=== PATIENT | female | born 1955 | race Caucasian/White ===

== ENCOUNTER → 2017-08-05 13:27 | Outpatient (CLI) | payer BC, SELFPAY ==
--- NOTE | 2017-08-05 13:31 | HPBI_ITS ---
MAMMOGRAPHY - BILATERAL SCREENING 3-D BRAYDEN SYNTHESIS REASON FOR EXAM: Female, 62 years old. Bilateral Screening 3-D tomosynthesis PERTINENT HISTORY: Asymptomatic. History of invasive ductal carcinoma age 56 with left lumpectomy and radiation therapy. Left nipple surgical removal and replacement during lumpectomy surgery-indentation upper-inner right breast from pocket created. Several breast fatty tumors removed years ago. TECHNIQUE: 2-D mammograms and 3-D Brayden synthesis of the breast (s) were performed. CAD was performed. COMPARISON: 02/19/2016 through 11/11/2013 mammograms. FINDINGS: The breast composition is heterogeneously dense that can obscure small breast masses. Scattered benign calcifications are seen. No dense spiculated masses, abnormal microcalcification cluster, dominant mass, architectural distortion or adenopathy is identified. There is no skin thickening or nipple retraction. Postsurgical changes noted left breast upper outer quadrant and axilla with numerous surgical clips. There has been no significant change since the prior study. HPBI/SCREENING MAMM (CAD), BILAT IMPRESSION: No mammographic signs of malignancy. Routine yearly mammograms recommended. ASSESSMENT CATEGORY: BIRADS Category 2: Benign. A letter regarding these results will be sent to the patient by the facility within 30 days. FOLLOW UP RECOMMENDATION: Yearly follow up mammogram recommended. (A) Approximately 10% of breast cancers are not detected by mammography. A normal mammogram should not delay biopsy of a clinically suspicious abnormality. Electronically Signed: Oscar Harp, at 18:32 EDT Tel , Service support ,
== END ==
PROVIDERS: Family Provider Nurse Practitioner; PCP Nurse Practitioner; Visit Provider Nurse Practitioner
DX: Z12.31 Encounter for screening mammogram for malignant neoplasm of breast (principal)
CPT/HCPCS: 77063; 77067

== ENCOUNTER → 2018-04-28 13:17 | Outpatient (CLI) | payer BC, SELFPAY ==
[2018-04-28 14:50] LABS: Creatinine, Serum 0.79 mg/dL (0.55-1.02); EST Glomerular Filtration Rate 78 mL/min (>60); Est Glom Filt Rate - Afr Amer 94 mL/min (>60)
--- OUTSIDE RECORDS SUMMARY | 2018-06-14 17:25 | XMS RPT_ITS ---
:1955 Author Organization OHIP Care Team Providers Name Role Phone JUSTINA NUÑEZ (JEWEL INSPECTOR) Attending Unavailable LINDSAY GUERRERO (SPENT GRAIN DRYER) Referring Unavailable ABRAHAM CARL Attending Unavailable SHIRA COLIN Attending Unavailable SHIRA COLIN Attending Unavailable Shira Colin Attending Unavailable PROVIDER, UNKNOWN Referring Unavailable No, PCP Primary Care Unavailable Lindsay Guerrero Attending Unavailable Lindsay Guerrero Referring Unavailable Lindsay Guerrero Consulting Unavailable KENISHA ARMENTA Attending Unavailable KENISHA ARMENTA Referring Unavailable Lindsay Guerrero Primary Care Unavailable Lindsay Guerrero Attending Unavailable Lindsay Guerrero Referring Unavailable Lindsay Guerrero Primary Care Unavailable Purpose Purpose PROBLEMS PROBLEMS DATE TYPE CONDITION / CODE ATTENDING STATUS SOURCE 04/29/2018 Admitting Unspecified abnormal Colin, Active [facility] Diagnosis involuntary Shira System movements / Repository R25.9(ICD-10) 04/29/2018 Admitting Personal history of Colin, Active [facility] Diagnosis malignant neoplasm Shira System of breast / Repository Z85.3(ICD-10) 04/28/2018 Unknown Z13.89 - Encounter KENISHA ARMENTA Active [place] for screening for Community other disorder / Hospital Z13.89(ICD-10) Repository 03/11/2018 Active Brow ptosis, COLIN, Active [place] bilateral / [facility] Main H57.813(ICD-10) [place] Repository 03/11/2018 Active Dermatochalasis of COLIN, Active [place] right upper eyelid / [facility] Main H02.831(ICD-10) [place] Repository 03/11/2018 Active Dermatochalasis of COLIN, Active [place] left upper eyelid / [facility] Main H02.834(ICD-10) [place] Repository 03/11/2018 Active Dermatochalasis of COLIN, Active [place] right lower eyelid / [facility] Main H02.832(ICD-10) [place] Repository 03/11/2018 Active Dermatochalasis of COLIN, Active [place] left lower eyelid / [facility] Main H02.835(ICD-10) [place] Repository 03/11/2018 Active Unknown / TRISTAN, Active [place] UNK(Unknown) ABRAHAM SIERRA [facility] Repository PROCEDURES PROCEDURES No Procedure Records FoundVITAL SIGNS VITAL SIGNS No Vital Signs Records FoundRESULTS RESULTS PROGRESS Observed: 05/07/2018 Status: COMPLETED Source: [place] 1:00 PM [facility] REPOSITORY HNO ID: [id number] Author: Shira Colin Service: (none) Author Type: Physician Type: Progress Notes Filed: 05/07/2018 1:31 PM Note Text: neurologist MRI brain-here for results. recc approval for botulinum toxin diagnosis: blepharospasm 100 units A/P 1. Blepharospasm both eyes Feels extra bone/lumps around eyes and feels she can't keep her eyelids open because muscle hurts to keep it open Blink seemed to help Patient feels her eyes just want to close Patient feels eyes are tried at night Exam: +blepharospasm both eyes/frequent blinking 2-3+ spasm Has some component of mouth movement Discussed benign essential blepharospasm and Meige syndrome Discussed can see a neurologist for other treatments as well --> patient has not seen Check MRI brain w/wo contrast 04/29/18: IMPRESSION:??? 1. Nonspecific prominence of ventricles and sulci for age. ? 2. Nonspecific white matter changes most likely related to chronic ? ischemia and/or small vessel disease although demyelinative lesions ? are not excluded in a patient of this age. Other less likely differential considerations include infectious/inflammatory etiologies or changes related to vascular headaches. Correlate with clinical parameters. ? 3. No evidence of other acute or significant intracranial abnormality. ? Discussed possible botulinum toxin-->discussed series of injections every 3-4 mo Approval for botulinum toxin diagnosis blepharospasm 100 units: Contracted Insurance: Patient's Blue Card PPO insurance is primary and Financial Clearance is not necessary for [facility]. Please schedule the requested appointment. Patient would like to proceed with Botox injections Risks, benefits, alternatives discussed and patient wishes to proceed. Consent obtained. Additional site verification of Botox injection completed verbally with patient just prior to injection. 4u/0.1 0.9 cc = 36 units 2. Heavy upper eyelids Referred by Dr. Carl Exam: Prominent brow bones, low brows but no significant dermatochalasis Could use botox for browlift Visual field : 14,15 but above 30 3. H/o breast cancer s/p treatment The documentation for this note was completed by Marivel CASTANEDA acting as a scribe for Shira Colin MD. The documentation recorded by the scribe accurately reflects the service I personally performed and the decisions made by me. I have confirmed and edited as necessary the relevant ophthalmic history, ROS, and the neuro exam findings as obtained by others. I have seen and examined Sylvia Matute. I have discussed the case and the management of this patient's care with the Resident/Fellow, if applicable. I also have reviewed and agree with the assessment and plan as stated above and agree with all of its relevant components. Shira Colin MD MRI BRAIN W/ + W/O Observed: 04/29/2018 Status: F Source: [facility] 11:22 AM SYSTEM REPOSITORY Patient Name: SYLVIA MATUTE MRI Exam Date/Time 04/29/2018 11:04:08 EST Exam MRI Brain w/ + w/o Contrast Ordering Physician UNASSIGNED, UNASSIGNED Accession Number [id number] CPT4 Codes 66290 () Reason For Exam abnormal involuntary movements Report CLINICAL INFORMATION: Abnormal involuntary movements. Twitching of eyes and light sensitivity. History of breast cancer. MRI brain without and with gadolinium: Contrast: MultiHance, 14 mL. Sagittal T1, coronal T1 and turbo spin-echo T2 and axial T1, turbo spin-echo T2, FLAIR and diffusion weighted images are obtained prior to gadolinium administration. Axial, coronal and sagittal T1-weighted images are obtained following gadolinium administration. The ventricles and sulci are prominent for age. No intra- axial mass lesion or mass-effect is seen. There are scattered nonenhancing foci of abnormal increased signal intensity in the subcortical and deep white matter which are nonspecific and most likely related to chronic ischemia and/or small vessel disease, but demyelinative foci are not excluded in a patient of this age. In addition, these could be seen with infectious/inflammatory etiologies or related to vascular headaches. No other focal areas of abnormal intra-axial signal intensity are identified. There is no abnormality of the cerebellum, midbrain, namrata or medulla. The corpus callosum, optic chiasm and pituitary are unremarkable in appearance. There is no evidence of acute ischemic disease. There are no areas of abnormal contrast enhancement or other enhancing lesions. IMPRESSION: 1. Nonspecific prominence of ventricles and sulci for age. 2. Nonspecific white matter changes most likely related to chronic ischemia and/or small vessel disease although demyelinative lesions are not excluded in a patient of this age. Other less likely differential considerations include infectious/inflammatory etiologies or changes related to vascular headaches. Correlate with clinical parameters. 3. No evidence of other acute or significant intracranial abnormality. Report Dictated on Workstation: [id number] Final Dictated: 04/29/2018 11:22 am Dictating Physician: MD BALDWIN HARLAN Signed Date and Time: 04/29/2018 11:29 am Signed by: MD BALDWIN HARLAN Transcribed Date and Time: 04/29/2018 11:22 MR-MRI BRAIN W/ + W/O Observed: 04/29/2018 Status: F Source: [place] CONTRAST IMPORT 12:00 AM [facility] REPOSITORY Images were obtained outside of [facility] [id number] SERUM CREATININE AND Collected: 04/28/2018 Status: F Source: [place] GFR 1:36 PM [facility] REPOSITORY TYPE CODE TESTS RESULT OUT OF RANGE REFERENCE UNITS LAB L501.1100 0.55-1.02 mg/dL Normal 0.79 CREAT,SERUM Result Comment: The validity of the calculated GFR AND GFRAA in patients over 70 years has not been determined. Clinical correlation is essential. LAB L501.1110 >60 mL/min Normal EST GFR 78 Result Comment: Non- GFR Calc LAB L501.1115 >60 mL/min Normal EST GFR - AA 94 Result Comment: GFR Calc Performed By: #### L501.1105 #### [facility] [address] [place], [address] PROGRESS Observed: 04/06/2018 Status: COMPLETED Source: [place] 8:01 AM [facility] REPOSITORY HNO ID: [id number] Author: Shira Colin Service: (none) Author Type: Physician Type: Progress Notes Filed: 04/06/2018 9:07 AM Note Text: Referred by Dr. Carl for droopy Both upper lids--patient states has to ?Hold lids up when watching television sometimes. Gets intermittent eye pain--none right now. States thinks has inflammation in lids. Blink tears Both eyes Three times a day A/P 1. Blepharospasm both eyes Feels extra bone/lumps around eyes and feels she can't keep her eyelids open because muscle hurts to keep it open Blink seemed to help Patient feels her eyes just want to close Patient feels eyes are tried at night Exam: +blepharospasm both eyes/frequent blinking 2-3+ spasm Has some component of mouth movement Discussed benign essential blepharospasm and meige syndrome Discussed can see a neurologist for other treatments as well Check MRI brain r/o other causes Discussed possible botulinum toxin-->discussed series of injections every 3-4 mo [facility] approval for botulinum toxin diagnosis: blepharospasm 100 units Patient hesitant; likes to use natural medications 2. Heavy upper eyelids Referred by Dr. Carl Exam: Prominent brow bones, low brows but no significant dermatochalasis Could use botox for browlift Visual field : 14,15 but above 30 3. H/o breast cancer s/p treatment The documentation for this note was completed by Marivel Melo COA acting as a scribe for Shira Colin MD. The documentation recorded by the scribe accurately reflects the service I personally performed and the decisions made by me. I have confirmed and edited as necessary the relevant ophthalmic history, ROS, and the neuro exam findings as obtained by others. I have seen and examined Sylvia Matute. I have discussed the case and the management of this patient's care with the Resident/Fellow, if applicable. I also have reviewed and agree with the assessment and plan as stated above and agree with all of its relevant components. Shira Colin MD PROGRESS Observed: 03/11/2018 Status: COMPLETED Source: [place] 11:28 AM [facility] [place] REPOSITORY HNO ID: [id number] Author: Abraham Carl Service: (none) Author Type: Physician Type: Progress Notes Filed: 03/11/2018 11:36 AM Note Text: ASSESSMENT/PLAN: 1. 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 Colin for evaluation 2. Ptosis of both eyebrows - ICD9: 701.8, ICD10: H57.[address] Colin for evaluation 3. Photophobia of both eyes - ICD9: 368.13, ICD10: H53.143 No findings on exam to explain Try Blink Tears both eyes three times a day 4. Eye pain, bilateral - ICD9: 379.91, ICD10: H57.13 Achy pain brow area both eyes and intermittent brief sharp stabbing pains both eyes - no findings on exam to explain 5. Nuclear senile cataract of both eyes - ICD9: 366.16, ICD10: H25.13 Not visually significant both eyes Educated patient on condition; continue to monitor. Plan: Blink Tears both eyes three times a day Schedule appointment to see Dr. Colin within next 4 weeks Abraham Carl MD I have confirmed and edited as necessary the relevant ophthalmic history, ROS, and the neuro exam findings as obtained by others. I have seen and examined Sylvia Matute. I have discussed the case and the management of this patient's care with the Resident/Fellow, if applicable. I also have reviewed and agree with the assessment and plan as stated above and agree with all of its relevant components. SCREENING MAMM (CAD), Observed: 08/05/2017 Status: F Source: [place] 1:31 PM [facility] REPOSITORY [facility] Imaging Services [address] [place] [address] SCREENING MAMM (CAD), BILAT MR#: [id number] Acct: [id number] Name: SYLVIA MATUTE Rep #: [id number] : 1955 F 62 From: Oscar Harp MD PCP: Lindsay Guerrero NP Status: REG CLI Study: SCREENING MAMM (CAD), BILAT Date of Exam: 08/05/17 Exam# [id number] Ordering Dr: Lindsay Guerrero MAMMOGRAPHY - BILATERAL SCREENING 3-D JIMMY SYNTHESIS REASON FOR EXAM: Female, 62 years old. Bilateral Screening 3-D tomosynthesis PERTINENT HISTORY: Asymptomatic. History of invasive ductal carcinoma age 56 with left lumpectomy and radiation therapy. Left nipple surgical removal and replacement during lumpectomy surgery-indentation upper-inner right breast from pocket created. Several breast fatty tumors removed years ago. TECHNIQUE: 2-D mammograms and 3-D Jimmy synthesis of the breast (s) were performed. CAD was performed. COMPARISON: 02/19/2016 through 11/11/2013 mammograms. FINDINGS: The breast composition is heterogeneously dense that can obscure small breast masses. Scattered benign calcifications are seen. No dense spiculated masses, abnormal microcalcification cluster, dominant mass, architectural distortion or adenopathy is identified. There is no skin thickening or nipple retraction. Postsurgical changes noted left breast upper outer quadrant and axilla with numerous surgical clips. There has been no significant change since the prior study. HPBI/SCREENING MAMM (CAD), BILAT IMPRESSION: No mammographic signs of malignancy. Routine yearly mammograms recommended. ASSESSMENT CATEGORY: BIRADS Category 2: Benign. A letter regarding these results will be sent to the patient by the facility within 30 days. FOLLOW UP RECOMMENDATION: Yearly follow up mammogram recommended. (A) Approximately 10% of breast cancers are not detected by mammography. A normal mammogram should not delay biopsy of a clinically suspicious abnormality. Electronically Signed: Oscar Harp, at 18:32 EDT Tel , Service support , CC: Lindsay Guerrero NP Speech Lang Path: Signed PROGRESS Observed: 08/05/2017 Status: COMPLETED Source: [place] 11:40 AM [facility] REPOSITORY HNO ID: [id number] Author: Justina Nuñez APRN.BENIGNO Service: (none) Author Type: Nurse Practitioner Type: Progress Notes Filed: 08/06/2017 8:15 AM Note Text: Chief Complaint Patient presents with: New Patient HPI: Sylvia Matute is a 62 year old female who presents here today to establish care for breast cancer-Pt. moving to [place] from [facility]. We have no records to review. Pt. signed release today. HPI:This is all per patient due to the fact that I have no records to review. Pt. felt a lump in 2008. She had not had a mammogram for 18 months prior to feeling the lump. Subsequently had an US and biopsy which showed triple negative disease. Left breast lumpectomy October 2008. Pt. recalls receiving adriamycin/cytoxan/taxotere/neulasta then radiation ending in early 2009. 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 She lived in [place] at this time. She has been living in [facility]. but is moving to [place]. Last mammogram was 18 months ago-she is scheduled for one today at [facility]. No complaints. Appetite:too good Energy level:poor ever since chemo and radiation. Denies fevers or recent illness. Resp:denies cough or sob Cardiac:denies chest pain/palpitations GI:denies abd pain, n/v, moving bowels regularly :denies dysuria/hematuria Extrem:joint pain it's all over h/o OA per pt. Endo:+hot flashes some days are worse than others-but they are everyday and sometimes at night. Neuro:+neuropathy to feet/toes since chemo Skin:denies rashes Heme:denies bleeding The ROS is otherwise negative. Past medical history, appointments, medications, allergies reviewed. No changes. EXAM: BP 133/78 Pulse 85 Temp 36.4 ?C (97.5 ?F) Ht 159.4 cm (5' 2.75) Wt 67.6 kg (149 lb) BMI 26.6 kg/m2 APPEARANCE Well appearing, alert, in no acute distress, well-hydrated, well nourished. HEART RRR with normal S1 and S2, no murmurs LUNG clear to auscultation BREAST FEMALE R no mass/nodule, L surgical defect to L upper/inner/radiation changes LYMPH NODES No cervical lymphadenopathy, No supraclavicular lymphadenopathy and No axillary lymphadenopathy. ABDOMEN bowel sounds normoactive, no bruits, soft, non-tender, non-distended, without organomegaly or palpable masses EXTREMITIES No edema NEURO Awake, alert and oriented x 3, Normal gait and No involuntary motions. SKIN Skin color, texture, turgor normal, no suspicious rashes or lesions ASSESSMENT/PLAN: 1. Malignant neoplasm of upper-inner quadrant of left breast in female, estrogen receptor negative (HCC) - ICD9: 174.2, V86.1, ICD10: C50.212, Z17.1 S/p Left breast lumpectomy/chemo/XRT ending in early 2009. - No concerning findings on exam. - Will await records to update EPIC. - Pt. having mammogram this afternoon at [facility]. - Follow up in one year. - Pt. aware to call office with any questions/concerns. The patient indicates understanding of these issues and agrees with the plan. Justina Nuñez APRN.CNP CNOVSP Observed: 08/05/2017 Status: COMPLETED Source: [place] 11:30 AM [facility] REPOSITORY Visit (SP) Office (ADELITA) SYLVIA MATUTE ([id number]) 1955 F Date Time Provider Department 08/05/17 11:30 AM JUSTINA NUÑEZ) ADELITA During your visit today, we recorded the following information about you: Temperature Pulse Blood pressure Weight 97.5 degrees 85/minute 133/78 67.6 kg Height 1.594 m Gerri Berrios LPN, LPN 08/05/2017 12:01 PM Signed New patient, discuss yearly f/u breast cancer. DERICK Cruz APRN.ERIS PELAEZ 08/06/2017 8:15 AM Signed Chief Complaint Patient presents with: New Patient HPI: Sylvia Matute is a 62 year old female who presents here today to establish care for breast cancer-Pt. moving to [place] from [facility]. We have no records to review. Pt. signed release today. HPI:This is all per patient due to the fact that I have no records to review. Pt. felt a lump in 2008. She had not had a mammogram for 18 months prior to feeling the lump. Subsequently had an US and biopsy which showed triple negative disease. Left breast lumpectomy October 2008. Pt. recalls receiving adriamycin/cytoxan/taxotere/neulasta then radiation ending in early 2009. 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 She lived in [place] at this time. She has been living in [facility]. but is moving to [place]. Last mammogram was 18 months ago-she is scheduled for one today at [facility]. No complaints. Appetite:ANDquot;too goodANDquot; Energy level:poor ANDquot;ever since chemo and radiation.ANDquot; Denies fevers or recent illness. Resp:denies cough or sob Cardiac:denies chest pain/palpitations GI:denies abd pain, n/v, moving bowels regularly :denies dysuria/hematuria Extrem:joint pain ANDquot;it's all overANDquot; h/o OA per pt. Endo:+hot flashes ANDquot;some days are worse than others- but they are everyday and sometimes at night.ANDquot; Neuro:+neuropathy to feet/toes since chemo Skin:denies rashes Heme:denies bleeding The ROS is otherwise negative. Past medical history, appointments, medications, allergies reviewed. No changes. EXAM: BP 133/78 Pulse 85 Temp 36.4 ?C (97.5 ?F) Ht 159.4 cm (5' 2.75ANDquot;) Wt 67.6 kg (149 lb) BMI 26.6 kg/m2 APPEARANCE Well appearing, alert, in no acute distress, well- hydrated, well nourished. HEART RRR with normal S1 and S2, no murmurs LUNG clear to auscultation BREAST FEMALE R no mass/nodule, L surgical defect to L upper/inner/radiation changes LYMPH NODES No cervical lymphadenopathy, No supraclavicular lymphadenopathy and No axillary lymphadenopathy. ABDOMEN bowel sounds normoactive, no bruits, soft, non-tender, non-distended, without organomegaly or palpable masses EXTREMITIES No edema NEURO Awake, alert and oriented x 3, Normal gait and No involuntary motions. SKIN Skin color, texture, turgor normal, no suspicious rashes or lesions ASSESSMENT/PLAN: 1. Malignant neoplasm of upper-inner quadrant of left breast in female, estrogen receptor negative (HCC) - ICD9: 174.2, V86.1, ICD10: C50.212, Z17.1 S/p Left breast lumpectomy/chemo/XRT ending in early 2009. - No concerning findings on exam. - Will await records to update EPIC. - Pt. having mammogram this afternoon at [facility]. - Follow up in one year. - Pt. aware to call office with any questions/concerns. The patient indicates understanding of these issues and agrees with the plan. Justina Nuñez APRN.BENIGNO Referring Provider: LINDSAY GUERRERO [[id number]] Allergies As of Date: 08/05/2017 (No Known Allergies) Date Reviewed: 08/05/2017 Reviewed by: Justina (Benigno) JOSEPHINE Nuñez.JEWEL INSPECTOR - Fully Assessed Reason for Visit: New Patient [172] Primary Visit Diagnosis:Malignant neoplasm of upper-inner quadrant of left breast in female, estrogen receptor negative (HCC) [C50.212, Z17.1] Follow-up and Disposition History Recorded Problem List As Of Date: 08/05/2017 (None) Visit Notes: >> Gerri Berrios LPN ThuAug 05, 2017 11:27 AM Status: Signed New patient, discuss yearly f/u breast cancer. Gerri Berrios LPN Encounter Status:Closed by JUSTINA NUÑEZ CNP on 08/06/17 ALLERGIES ALLERGIES DATE TYPE / CODE NAME / CODE REACTION SEVERITY SOURCE Drug NO KNOWN [facility] Class/38110 ALLERGIES Main [place] 1003(SNOMED Repository CT) ENCOUNTERS ENCOUNTERS ADMIT/DISCHARGE ACCOUNT NUMBER ADMITTING ENCOUNTER LOCATION SOURCE CLASS 05/20/2018 [id number] Ambulatory Building:[facility] Repository 05/07/2018/05/10/20 [id number] Ambulatory [address] Repository 04/29/2018 [id number] Ambulatory [facility] Repository 04/28/2018 [id number] Ambulatory [facility] ding:LAB Repository 04/06/2018/04/06/20 [id number] Ambulatory [address] Repository 03/11/2018/03/12/20 [id number] Ambulatory [address] Repository 08/05/2017 [id number] Ambulatory [facility] ding:BI Repository 08/05/2017/08/07/19 [id number] Ambulatory [address] Repository FUNCTIONAL STATUS FUNCTIONAL STATUS No Functional Status Records FoundEQUIPMENT EQUIPMENT No Equipment Records FoundPAYERS PAYERS ENCOUNTER GUARANTOR PAYER SUBSCRIBER SOURCE 05/20/2018 Sylvia Reddy Primary Joel CasasB: OHIP Practices LongDOB: Insurance:[employer] [id number] Repository BC/BSPolicy Number: [address] [place] [id number] [place], [place] Date:[id number] [id number]: [phone]: [phone]) Name:[facility]LY [facility] [phone] () [phone] [place] [address] ID ()Tel: [phone]: [phone] 05/20/2018 Secondary Joel Plascencia: [place] Practices Insurance:[employer] [id number] Repository /BSPolicy Number: [address] [place] [address] [id number] [place], [place] Date:2016-05-18 703[address]Yks: [phone] [id number] [phone] () Name:[address], [place] [id number]: 04/29/2018 Sylvia CasasB: Primary Sylvia Plascencia: [facility] Vapotherm Insurance:[employer] Blue [id number] System [place] Cross Blue Repository [place], [place] ShieldPolic Number: [id number]: [phone] Effective Date: [phone] () 04/28/2018 SYLVIA Reddy Primary JOEL Barak DOMINGO [place] [id number] MUD [facility] [place], Number: [facility] [id number]: [id number] Repository Date:[id number] () [id number], [place] [address]DV: 04/28/2018 Secondary NOT GIVENUNK Jenna Insurance:SELF PAY [facility] Number: Effective Repository Date:2018-04-28 08/05/2017 SYLVIA Reddy Primary SYLVIA Reddy Jenna [id number] MUD Insurance:ANTHEMPolic LONGDOB: [facility], Number: [id number] [address]Anr: [id number] Repository Date:8027-63-43TJ [address] () [address]388[address]QU, [place] [address]EI: 08/05/2017 Secondary NOT GIVENUNK Jenna Insurance:SELF PAY [facility] Number: Effective Repository Date:2017-07-17 SOCIAL HISTORY SOCIAL HISTORY No Social History Records FoundFAMILY HISTORY FAMILY HISTORY No Family History Records FoundADVANCE DIRECTIVES ADVANCE DIRECTIVES No Advanced Directives Records FoundINFORMATION SOURCE INFORMATION SOURCE DATE CREATED AUTHOR AUTHOR'S ORGANIZATION 06/09/2018 [facility]
== END ==
PROVIDERS: Family Provider Nurse Practitioner; PCP Nurse Practitioner
DX: Z13.89 Encounter for screening for other disorder (principal)
CPT/HCPCS: 36415; 82565

== ENCOUNTER → 2020-01-19 09:04 | Outpatient (CLI) | payer BC, MEDICARE, SELFPAY ==
--- NOTE | 2020-01-19 09:16 | BI_ITS ---
MAMMOGRAPHY - BILATERAL DIAGNOSTIC REASON FOR EXAM: Female, 64 years old. Palpable lump at the lumpectomy site. PERTINENT HISTORY: Personal history of breast cancer. Prior left lumpectomy with chemotherapy. TECHNIQUE: Digital bilateral breast génesis (3D mammographic acquisition) in the CC and MLO projections. 2-D mediolateral oblique (MLO) and craniocaudad (CC) views of both breasts were obtained. CAD: Full Field Digital Mammography with Computer Added Detection was performed. COMPARISON: Comparison is made with prior abdomen examination dated 10/18/2019. FINDINGS: Breast Composition: The breasts are heterogeneously dense, which may obscure small masses. There are no dominant masses or suspicious calcifications. Stable deformity of the left breast and compared with prior lumpectomy. Tissue markers are seen in the deep medial portion of the left breast. Dense calcifications are seen in the medial aspect of the left breast. No other significant abnormalities are identified. There has been no significant change since the prior study. BI/DIAG MAMM W/CAD, BILAT IMPRESSION: Stable bilateral diagnostic mammogram. Correlation with ultrasound of the palpable lump in the left breast is recommended. ASSESSMENT CATEGORY: BIRADS Category 0: Incomplete. Need additional imaging evaluation. A letter regarding these results will be sent to the patient by the facility within 30 days. Approximately 10% of breast cancers are not detected by mammography. A normal mammogram should not delay biopsy of a clinically suspicious abnormality. Electronically Signed: Dwayne Calderon, at 11:15 EDT , Service support ,
--- NOTE | 2020-01-19 09:16 | US_ITS ---
STUDY: ULTRASOUND BREAST - LEFT REASON FOR EXAM: Female, 64 years old. Palpable lump left breast. TECHNIQUE: Axial and longitudinal images of the LEFT breast were performed with a high resolution ultrasound transducer. # OF IMAGES: 130 COMPARISON: Comparison is made with prior mammogram done today. FINDINGS: LEFT Breast: Entire breast was examined. 2 small benign-appearing lymph nodes are seen in the left axillary region. The larger nodule measures 1.1 cm x 0.8 cm x 0.4 cm. US/Breast Limited Unilateral IMPRESSION: 2 benign appearing lymph nodes are seen in the left axillary region. ASSESSMENT CATEGORY: BIRADS Category 2: Benign. A letter regarding these results will be sent to the patient by the facility within 30 days. Electronically Signed: Dwayne Calderon, at 13:29 EDT , Service support ,
== END ==
PROVIDERS: PCP Nurse Practitioner; Referring Provider Nurse Practitioner; Visit Provider Nurse Practitioner
DX: N63.20 Unspecified lump in the left breast, unspecified quadrant (principal); Z85.3 Personal history of malignant neoplasm of breast
CPT/HCPCS: 76642; 77062; 77066; G0279

== ENCOUNTER → 2020-01-31 15:29 | Outpatient (CLI) | payer BC, MEDICARE, SELFPAY ==
--- NOTE | 2020-01-31 15:30 | PET_ITS ---
EXAMINATION: FDG PET-CT INDICATIONS: A 64-year-old female with history of carcinoma of the breast presenting for restaging examination. COMPARISON EXAMINATION: None available INDEX LESION SIZE SUV INTERPRETATION Mediastinum, bilateral infrahilar regions 1.7 (max) Quantitative criteria for viable neoplasm are not fulfilled Right lower posterior lung, diffuse 1.2 Quantitative criteria for viable neoplasm are not fulfilled TECHNIQUE: Following the intravenous administration of 13.95 mCi of F-18 deoxyglucose via the right antecubital fossa, multiplanar image acquisitions of the neck, chest, abdomen and pelvis to level of mid thigh, obtained at one hour post radiopharmaceutical administration contemporaneously interpreted with the current CT of the neck, chest, abdomen and pelvis, to level of mid thigh, dated 01/31/2020 via coregistration reveals: BLOOD GLUCOSE LEVEL:?? 97 mg/dl?HEIGHT:?62 inches?WEIGHT: 157 lbs. FINDINGS: 1. Mild increased FDG concentration is observed in the subcarinal mediastinum, bilateral infrahilar regions generating a calculated maximal standard uptake value of 1.7. 2. Normal physiologic distribution of the radiopharmaceutical is apparent in the hepatic (3.3) and splenic parenchyma, right renal unit, bladder and visualized intestinal tract. The visualized portion of the cerebral cortex demonstrate symmetric and preserved glucose metabolism. Prominent uptake is defined in the anterior neck, laryngeal structures which appears associated with the cricopharyngeus musculature without evidence of soft tissue thickening most consistent with physiologic tracer uptake. Mild diffuse non-nodular increased fluorine labeled glucose metabolism is noted in the right mid-lower posterior lung rendering a calculated maximal standard uptake value of 1.2. Quantitative criteria for viable neoplasm are not fulfilled. Pertinent CT findings are as follows: CHEST: There are no parenchymal densities-nodules defined in the right and left hemithorax with discernible quantitatively significant increased FDG concentration. Surgical clip placement is defined in the left breast and axillary regions. Subcentimeter left and right axillary soft tissue reveals no evidence of quantitatively significant increased FDG uptake. There is atherosclerotic calcification defined in the thoracic aorta without evidence of dilatation-aneurysm formation. ABDOMEN AND PELVIS: There is atherosclerotic calcification defined in the abdominal aorta without evidence of dilatation-aneurysm formation. Pelvic arterial calcification is demonstrated. Colonic diverticulosis is encountered without evidence of diverticulitis. Right and left inguinal soft tissue densities with fatty hilus are ametabolic. The left kidney is metabolic, morphologically absent commensurate with history of known previous nephrectomy. SKELETAL: Degenerative changes are noted in the cervical, thoracic and lumbar spine. There is diffuse demineralization identified throughout the axial skeletal structures. PET/PET/CT Tumor Base -Thigh Subs IMPRESSION: 1. NEGATIVE EXAMINATION. There is no definitive quantitative scintigraphic evidence of recurrent-metastatic/viable neoplasm. 2. Enhanced tracer uptake noted in the subcarinal mediastinum and bilateral infrahilar regions do not fulfill quantitative criteria for viable neoplasm. (Jose et al, Journal of Clinical Oncology 16:2142, 1998 Delmis et al, Journal of Nuclear Medicine 43:155P, 2002). 3. Diffuse non-nodular increased tracer uptake visualized in the right lower posterior lung does not fulfill quantitative criteria for viable neoplasm. (Irene et al, Annals of Internal Medicine, 138:724, 2003). Electronic Signature Rey Arnold D.O. Accurate Quantification of SUVs for this report are calculated using the exclusive [employer]. Electronically Signed: Rey Arnold DO at 18:58 EDT Tel , Service support ,
== END ==
PROVIDERS: PCP Nurse Practitioner; Referring Provider Nurse Practitioner; Visit Provider Nurse Practitioner
DX: D48.62 Neoplasm of uncertain behavior of left breast (principal)
CPT/HCPCS: 78815; A9552

== ENCOUNTER → 2020-03-01 14:20 | Outpatient (CLI) | payer BC, MEDICARE, SELFPAY ==
--- NOTE | 2020-03-01 14:45 | BD_ITS ---
STUDY: DUAL ENERGY X-RAY ABSORPTIOMETRY / DXA REASON FOR EXAM: Female, 65 years old. Age of gurwinder 53. Pat is 156.7# and 62.5 and quot; a loss of .5 and quot; per pat. Past hx of smoking off and on. Has been on steroids a couple of times. Takes Calcium. Exercises a little to moderately. TECHNIQUE: Bone Mineral Density (BMD) measurements of lumbar spine and bilateral hips were obtained. COMPARISON: None. FINDINGS: Lumbar Spine (L1-L4): g/cm2 (1.068) / T-score (-0.9) / Z-score (0.8) Findings are suggestive of normal bone density with a low fracture risk. Left Femur Total: g/cm2 (0.853) / T-score (-1.2) / Z-score (0.0) Left Femoral Neck: g/cm2 (0.852) / T-score (-1.3) / Z-score (0.2) Right Femur Total: g/cm2 (0.905) / T-score (-0.8) / Z-score (0.4) Right Femoral Neck: g/cm2 (0.889) / T-score (-1.1) / Z-score (0.4) BD/Dexa Bone Density Study IMPRESSION: The patient is considered osteopenic as outlined below according to World Guru Organization (WHO) criteria with a low fracture risk. Reference Information: The T-score is the number of standard deviations above or below the standard which is normal for young adults at their peak bone mineral density. The World Health Organization (WHO) interprets the T-scores as follows: Above -1 Normal bone density Between -1 and -2.5 Osteopenia Equal to / or below -2.5 Osteoporosis As a practical clinical guideline, osteopenia may be graded as follows: Mild -1 through -1.5 Moderate -1.6 through -2.0 Severe -2.1 through -2.4 The Z-score is the number of standard deviations above or below age-matched controls. A Z-score of less than -1.5 would be considered abnormal. References: 1. NIH Osteoporosis and Related Bone Diseases www osteo.org 2. International Society for Clinical Densitometry www iscd.org 3. National Osteoporosis Foundation www nof.org Electronically Signed: Dwayne Calderon, at 11:06 EDT , Service support ,
== END ==
LOC: OPBD 09-02 00:18
PROVIDERS: PCP Nurse Practitioner; Referring Provider Nurse Practitioner; Visit Provider Nurse Practitioner
DX: Z78.0 Asymptomatic menopausal state (principal)
CPT/HCPCS: 77080

== ENCOUNTER 2021-08-03 19:33 | Emergency (ER) | payer BC, MEDICARE, SELFPAY ==
[2021-08-03 19:34] VITALS: BP 196/95; PULSE 89; RESP 16; TEMP 36.8; O2SAT 97; BMI 27.3
[2021-08-03 19:37] VITALS: BP 196/95; PULSE 89; RESP 16; TEMP 36.8; O2SAT 97
--- NOTE | 2021-08-03 20:53 | EDS_ITS ---
HPI History of Present Illness Chief Complaint: Dizziness Informant: patient and spouse/S.O. Narrative Narrative: 4-day history of room spinning especially with laying down or sitting up. States done in [place] in her camper when she woke up with symptoms. Would have intermittent symptoms last time today. Nausea without vomiting. Mild frontal headache. History of breast cancer years ago with treatment. No fevers. No visual changes. No weakness. No speech changes. Patient does not take any daily medications. Denies allergies. States has 1 kidney. Prior similar symptoms: No PFSH PFSH Medical History Breast cancer, left breast Neurologic disorder of eye movements Home Medications metoclopramide HCl [Reglan] 5 mg PO Q6H PRN #20 tab 08/03/21 [Rx Last Taken Unknown] Allergy/AdvReac Type Severity Reaction Status Date / Time No Known Allergies Allergy Verified 08/03/21 19:36 Surgical History H/O left nephrectomy Social History Smoking Status: Never smoker ROS ROS ED Constitutional Constitutional ED: Denies chills, fever(s) or sweats Eyes Eyes: Denies change in vision ENT ENT ED: Denies dysphagia or sore throat Cardiovascular Cardiovascular: Denies chest pain, leg edema, palpitations or racing heartbeat Respiratory/Chest Respiratory/Chest: Denies cough, dyspnea or dyspnea on exertion Gastrointestinal Gastrointestinal: Denies abdominal pain, diarrhea, nausea or vomiting Genitourinary Genitourinary ED: Denies dysuria, hematuria or urinary frequency Musculoskeletal Musculoskeletal: Denies back pain, extremity pain or neck pain Integumentary Denies rash or wounds Neurologic Neurologic: Reports headache(s) and other Details: Dizziness ; Denies paresthesias or weakness EXAM Physical Exam Const Vital Signs: 08/03/21 19:34 08/03/21 19:37 08/03/21 20:45 Temperature 98.3 F 98.3 F Temperature Source Temporal Temporal Pulse Rate 89 89 Respiratory Rate 16 16 Respiratory Pattern Normal Blood Pressure 196/95 H 196/95 H Blood Pressure Mean 128 128 Pulse Ox 97 97 Oxygen Delivery Method Room Air Room Air 08/03/21 22:57 Temperature Temperature Source Pulse Rate 81 Respiratory Rate 16 Respiratory Pattern Blood Pressure 168/92 H Blood Pressure Mean Pulse Ox 98 Oxygen Delivery Method Positive well nourished and well developed General Appearance ED: well developed and NAD HEENT Reports TM's clear and moist mucous membranes normocephalic and atraumatic Tympanic Membrane ED: Yes TM's clear Eyes PERRL, EOMs intact bilaterally and conjunctivae normal General Eye ED: Yes normal appearance of both eyes Neck no lymphadenopathy and supple General: Negative for tenderness Chest Wall Chest: Negative for tenderness Resp normal respiratory effort and normal air movement Effort and Inspection: symmetric chest movement; Negative for respiratory distress Cardio regular rate, regular rhythm and no murmurs Peripheral Pulses: pulses 2+ throughout GI normal to inspection, nondistended, normoactive bowel sounds and non-tender Palpation: Negative for guarding or rebound tenderness present Back/Spine no CVA tenderness and no thoracic nor lumbar tenderness Extremity normal to inspection General Extremety ED: Negative for edema or tenderness General Extremity: Negative for edema Neuro oriented x3, CN's II-XII intact bilaterally and no sensory deficits noted Neuro Narrative: NIH equals 0. Positive Ghislaine-Hallpike to the right. Sensorium / Orientation: awake and alert Skin no rashes or lesions noted and no wounds MDM MDM MDM Narrative Medical decision making narrative: Patient with positive Ghislaine-Hallpike on the right side. With patient's age and history of breast cancer, CT scan brain was obtained returning no acute process. NIH was 0. Basic labs were normal. She is treated with IV Reglan initially on reevaluation she states moderate improvement of symptoms. I discussed and showed the patient Mele maneuver to help with symptoms. She is given prescription of Reglan to use as needed discussed close follow-up with her PCP. Return precautions discussed. All questions were answered. Lab Data Attestation: I reviewed the patient's lab results. Labs: Laboratory Results - last 24 hr 08/03/21 08/03/21 20:50 20:50 WBC 7.6 RBC 5.23 Hgb 15.0 Hct 44.8 MCV 85.7 MCH 28.7 MCHC 33.5 RDW Std Deviation 39.5 RDW Coeff of Ricardo 12.7 Plt Count 262 MPV 10.6 Immature Gran % (Auto) 0.100 Neut % (Auto) 56.9 Lymph % (Auto) 32.8 Cloud % (Auto) 8.5 Eos % (Auto) 1.3 Baso % (Auto) 0.4 Absolute Neuts (auto) 4.3 Absolute Lymphs (auto) 2.48 Nucleated RBC % 0 Sodium 140 Potassium 3.9 Chloride 108 H Carbon Dioxide 26.0 Anion Gap 6 BUN 10 Creatinine 0.76 Estim Creat Clear Calc 45.16 Est GFR (MDRD) Af Amer 97 Est GFR (MDRD) Non-Af 80 BUN/Creatinine Ratio 13.1 Glucose 96 Calcium 9.9 Radiography Diagnostic Testing: Clinical Impression(s) from Imaging Studies Brain CT 08/03/21 21:06 IMPRESSION: No acute intracranial hemorrhage or mass effect. Electronically Signed: Hany Ambrosio MD (Brooks) at 22:01 EDT Reading Location ID and State: [facility] / [place] , Service support , Discharge Plan Triage Chief Complaint: Dizziness ED Provider: Moe Ruvalcaba Dx/Rx/DC Orders Clinical Impression: Vertigo Instructions: ED BPV Vertigo Prescriptions: New metoclopramide HCl [Reglan] 5 mg tablet 5 mg PO Q6H PRN (Reason: nausea and vomiting or vertigo) Qty: 20 RF: 0 Primary Care Provider: Lindsay Ramon NP Referrals: Lindsay Ramon SLICER MACHINE OPERATOR, SLICER MACHINE OPERATOR-C [Primary Care Provider] - 3-5 Days if not improving Activity Restrictions/Additional Instructions: CT scan negative. Performed Mele maneuver as shown as needed. Use Reglan as needed. Follow-up with your doctor. Return if any worsening symptoms. Disposition Disposition: Home, Self Care Discharge Date/Time: 08/03/21 22:59
[2021-08-03 21:02] LABS: Absolute Lymphocyte Count 2.48 X10^3/uL (0.83-4.51); Absolute Neutrophil Count 4.3 X10^3/uL (2.0-7.7); Basophil# 0.03 X10^3/uL; Basophil% 0.4 % (0-1); Eosinophils% 1.3 % (0-5); Hematocrit 44.8 % (37-47); Lymphocyte # 2.48 X10^3/ul (0.83-4.51); Lymphocyte % 32.8 % (19-41); Mean Corp Hgb Conc 33.5 g/dL (32-36); Mean Corpuscular Hgb 28.7 pg (27.0-32.0); Mean Corpuscular Volume 85.7 fL (81-99); Mean Platelet Vol. 10.6 fl (6.2-12.0); Monocyte# 0.64 X10^3/uL; Monocyte% 8.5 % (0-10); NRBC Flagged by Analyzer 0 % (0-5); Neutrophil # 4.31 X10^3/uL (2.7-7.7); Neutrophil % 56.9 % (47-70); Platelet Count 262 K/mm3 (150-450); RBC Distribution Width CV 12.7 % (11.6-14.6); RBC Distribution Width SD 39.5 fl (35.1-43.9); Red Blood Count 5.23 M/mm3 (4.2-5.4); White Blood Count 7.6 K/mm3 (4.4-11.0)
--- NOTE | 2021-08-03 21:06 | CT_ITS ---
STUDY: CT BRAIN WITHOUT CONTRAST REASON FOR EXAM: Female, 66 years old. vertigo RADIATION DOSAGE (If Supplied By Facility): CTDIvol = ( 44.99 ) mGy, DLP = ( 796.11 ) mGycm TECHNIQUE: Transaxial CT imaging of the brain was performed without administration of intravenous contrast material. Individualized dose optimization techniques were used for this CT. COMPARISON: No relevant priors. FINDINGS: Normal soft tissue structures. Normal calvarium. There is mild cerebral atrophy with widening of the extra-axial spaces and ventricular dilatation. There are areas of decreased attenuation within the white matter tracts of the supratentorial brain, consistent with microvascular disease changes. Normal basal ganglia and thalami. Normal brainstem. Normal cerebellum. There is no intracranial hemorrhage. There are no findings of an acute ischemic infarction. Normal visualized paranasal sinuses. CT/Brain/Head without Contrast IMPRESSION: No acute intracranial hemorrhage or mass effect. Electronically Signed: Hany Ambrosio MD (Brooks) at 22:01 EDT ,
[2021-08-03] MEDS: Metoclopramide 10 MG/2 ML Vial 5 MG IV (21:17)
[2021-08-03 22:06] LABS: Anion Gap 6 (5-15); BUN 10 mg/dL (7-18); BUN/Creat Ratio 13.1 RATIO (10-20); Calcium,Total 9.9 mg/dL (8.5-10.1); Chloride 108 mmol/L (98-107); Creatinine, Serum 0.76 mg/dL (0.55-1.02); EST Glomerular Filtration Rate 80 mL/min (>60); Est Glom Filt Rate - Afr Amer 97 mL/min (>60); Estimated Creatinine Clearance 45.16 ml/min; Glucose 96 mg/dL (74-106); Potassium 3.9 mmol/L (3.5-5.1); Sodium Level 140 mmol/L (136-145)
[2021-08-03 22:57] VITALS: BP 168/92; PULSE 81; RESP 16; O2SAT 98
== END 2021-08-03 22:59 | disposition home or self-care (01) ==
PROVIDERS: Emergency Provider Emergency Medicine; PCP Nurse Practitioner; Visit Provider Emergency Medicine
DX: R42 Dizziness and giddiness (principal)
CPT/HCPCS: 70450; 80048; 85025; 96374; 99285; A4216

== ENCOUNTER → 2021-11-25 | Outpatient (CLI) | payer BC, MEDICARE, SELFPAY ==
[2021-11-25 16:22] LABS: Free T3 2.9 pg/mL (2.18-3.98); T4 Free Direct 1.01 ng/dL (0.76-1.46); T4 Total, Thyroxin 9.9 ug/dL (4.8-13.9); Thyroid Stim Hormone (TSH) 1.07 uIU/mL (0.358-3.74)
== END | disposition home or self-care (01) ==
LOC: PAVLAB 15:34
PROVIDERS: PCP Nurse Practitioner; Referring Provider Otolaryngology Otolaryngology/Facial Plastic Surgery; Visit Provider Otolaryngology Otolaryngology/Facial Plastic Surgery
DX: E03.9 Hypothyroidism, unspecified (principal)
CPT/HCPCS: 36415; 84436; 84439; 84443; 84481

== ENCOUNTER → 2021-12-05 | Outpatient (CLI) | payer BC, MEDICARE, SELFPAY ==
--- NOTE | 2021-12-05 12:20 | US_ITS ---
STUDY: SUPERFICIAL ULTRASOUND - NECK SOFT TISSUE. REASON FOR EXAM: Female, 66 years old. LUMP ON NECK TECHNIQUE: A superficial ultrasound was performed with real-time and static mcintosh-scale imaging. COMPARISON: None. FINDINGS: The right submandibular gland measures 5.6 cm x 3.4 cm x 2 cm. Within it, there is a 1.3 cm x 2.1 cm by 1.3 cm cyst. There is also evidence of a 0.5 cm x 0.4 cm x 0.3 cm hypoechoic nodule. This may represent a small lymph node. The left submandibular gland measures 4.7 cm x 2.6 x 1.4 cm. Within it, there is a 5 mm x 6 mm x 4 mm well-defined hypoechoic nodule. This may represent a small lymph node. US/Head/Neck Soft Tissue IMPRESSION: 1.3 cm x 2.17 x 1.3 cm cyst in the right submandibular gland. Subcentimeter hypoechoic nodules in both right and left submandibular glands most likely representing small lymph nodes. Electronically Signed: Dwayne Calderon MD at 13:57 EDT ,
== END | disposition home or self-care (01) ==
LOC: US 12:18
PROVIDERS: PCP Nurse Practitioner Family; Referring Provider Nurse Practitioner Family; Visit Provider Nurse Practitioner Family
DX: R22.1 Localized swelling, mass and lump, neck (principal)
CPT/HCPCS: 76536

== ENCOUNTER → 2021-12-16 | Outpatient (CLI) | payer BC, MEDICARE, SELFPAY | END | disposition home or self-care (01) | LOC: LABSPEC 15:50 | PROVIDERS: PCP Nurse Practitioner Family; Visit Provider Surgery | DX: K11.20 Sialoadenitis, unspecified (principal) | CPT/HCPCS: 87070; 87205 ==

== ENCOUNTER → 2022-04-17 | Outpatient (CLI) | payer BC, MEDICARE, SELFPAY ==
--- NOTE | 2022-04-17 12:16 | BI_ITS ---
MAMMOGRAPHY - BILATERAL SCREENING REASON FOR EXAM: Female, 67 years old. Routine annual screening examination. PERTINENT HISTORY: Personal history of breast cancer. Prior left lumpectomy with chemotherapy and radiation. Resection of the left nipple complex. TECHNIQUE: Digital bilateral breast brayden (3D mammographic acquisition) in the CC and MLO projections. 2-D mediolateral oblique (MLO) and craniocaudad (CC) views of both breasts were obtained. CAD: Full Field Digital Mammography with Computer Added Detection was performed. COMPARISON: Comparison is made with prior study dated 08/05/2017 and 01/19/2020. FINDINGS: Breast Composition: The breasts are heterogeneously dense, which may obscure small masses. There are no dominant masses or suspicious calcifications. The patient is status post lumpectomy in the deep upper medial aspect of the left breast with resultant postoperative scarring and deformity of the breast. Surgical clips are seen in the left axillary region. No other significant abnormalities are identified. There has been no significant change since the prior study. BI/SCRN MAMM (CAD)W/BRAYDEN BILAT IMPRESSION: Stable bilateral screening mammogram. Yearly follow-up mammogram recommended. (A) ASSESSMENT CATEGORY: BIRADS Category 2: Benign. A letter regarding these results will be sent to the patient by the facility within 30 days. Approximately 10% of breast cancers are not detected by mammography. A normal mammogram should not delay biopsy of a clinically suspicious abnormality. [id number] Electronically Signed: Dwayne Calderon MD at 13:23 EST ,
--- NOTE | 2022-04-17 12:22 | BD_ITS ---
STUDY: DUAL ENERGY X-RAY ABSORPTIOMETRY / DXA REASON FOR EXAM: Female, 67 years old. [id number] TECHNIQUE: Bone Mineral Density (BMD) measurements of lumbar spine and bilateral hips were obtained. COMPARISON: None. FINDINGS: Lumbar Spine (L1-L4): g/cm2 (43.32) / T-score (-2.1) / Z-score (-0.1) Findings are suggestive of osteopenic with a slightly elevated fracture risk. Left Femur Total: g/cm2 (0.76) / T-score (-1.4) / Z-score (-0.1) Left Femoral Neck: g/cm2 (0.71) / T-score (-1.2) / Z-score (0.5) Right Femur Total: g/cm2 (0.83) / T-score (-0.9) / Z-score (5) Right Femoral Neck: g/cm2 (0.74) / T-score (-1) / Z-score (0.7) Right Forearm: g/cm2 ( ) / T-score ( ) / Z-score ( ) Left Forearm: g/cm2 ( ) / T-score ( ) / Z-score ( ) The T-Scores on the most recent prior examination were: Lumbar Spine (L1-L4): There has been reduction of bone density since the previous examination. BD/Dexa Bone Density Study IMPRESSION: The patient is considered osteopenic as outlined below according to World Guru Organization (WHO) criteria with a slightly elevated fracture risk. There has been loss of bone density since the previous examination. Reference Information: The T-score is the number of standard deviations above or below the standard which is normal for young adults at their peak bone mineral density. The World Health Organization (WHO) interprets the T-scores as follows: Above -1 Normal bone density Between -1 and -2.5 Osteopenia Equal to / or below -2.5 Osteoporosis As a practical clinical guideline, osteopenia may be graded as follows: Mild -1 through -1.5 Moderate -1.6 through -2.0 Severe -2.1 through -2.4 The Z-score is the number of standard deviations above or below age-matched controls. A Z-score of less than -1.5 would be considered abnormal. References: 1. NIH Osteoporosis and Related Bone Diseases www osteo.org 2. International Society for Clinical Densitometry www iscd.org 3. National Osteoporosis Foundation www nof.org Electronically Signed: Cole Watson MD at 18:17 EST ,
== END | disposition home or self-care (01) ==
LOC: OPBD 12:14
PROVIDERS: PCP Nurse Practitioner Family; Visit Provider Nurse Practitioner Family
DX: Z12.31 Encounter for screening mammogram for malignant neoplasm of breast (principal); Z78.0 Asymptomatic menopausal state
CPT/HCPCS: 77063; 77067; 77080

== ENCOUNTER → 2023-08-03 | Outpatient (CLI) | payer BC, MEDICARE, SELFPAY ==
--- NOTE | 2023-08-03 12:11 | BI_ITS ---
MAMMOGRAPHY - BILATERAL SCREENING REASON FOR EXAM: Female, 68 years old. Routine annual screening examination. PERTINENT HISTORY: Personal history of breast cancer. Prior left lumpectomy with radiation and chemotherapy. TECHNIQUE: Digital bilateral breast brayden (3D mammographic acquisition) in the CC and MLO projections. 2-D mediolateral oblique (MLO) and craniocaudad (CC) views of both breasts were obtained. CAD: Full Field Digital Mammography with Computer Added Detection was performed. COMPARISON: Comparison is made with prior study dated April 17, 2022 and January 19, 2020. FINDINGS: Breast Composition: The breasts are heterogeneously dense, which may obscure small masses. There are no dominant masses or suspicious calcifications. Once again, the patient is status post lumpectomy in the deep upper medial aspect of the left breast with resultant breast deformity and skin thickening as well as dystrophic calcification. Surgical clips are also seen in the left axillary region. No other significant abnormalities are identified. There has been no significant change since the prior study. BI/SCRN MAMM (CAD)W/BRAYDEN BILAT IMPRESSION: Stable bilateral screening mammogram. Yearly follow-up mammogram recommended. (A) ASSESSMENT CATEGORY: BIRADS Category 2: Benign. A letter regarding these results will be sent to the patient by the facility within 30 days. Approximately 10% of breast cancers are not detected by mammography. A normal mammogram should not delay biopsy of a clinically suspicious abnormality. [id number] Electronically Signed: Dwayne Calderon MD at 13:07 EDT ,
== END | disposition home or self-care (01) ==
LOC: OPBI 12:11
PROVIDERS: PCP Nurse Practitioner Family; Referring Provider Nurse Practitioner Family; Visit Provider Nurse Practitioner Family
DX: Z12.31 Encounter for screening mammogram for malignant neoplasm of breast (principal); Z85.3 Personal history of malignant neoplasm of breast
CPT/HCPCS: 77063; 77067

== ENCOUNTER 2024-04-09 12:44 | Emergency (ER) | payer BC, MEDICARE, SELFPAY ==
[2024-04-09 12:44] VITALS: BP 175/91; PULSE 107; RESP 18; TEMP 35.7; O2SAT 98; BMI 24.9
--- NOTE | 2024-04-09 13:11 | EX.ED.DYSGE1 ---
HPI History of Present Illness Chief Complaint: Dizziness Informant: patient Narrative Narrative: 69-year-old female presents for episodic vertigo that feels like spinning in her head and making her feel like she is off balance when it is occurring, severe when it occurs, associated with nausea and vomiting, that started this morning after she got out of bed and then went to lay back down which is what started this. Then bending over and changing positions of her head in a certain way reproduces the symptoms which last for a few minutes at a time and then completely resolved. When she is asymptomatic she is able to walk without any symptoms or ataxia/difficulty. She denies any peripheral neurologic symptoms or diplopia/vision changes. She denies any tinnitus or hearing changes or loss of hearing or vision. She denies a recent ear infection or cold. She denies any head injuries or falls. States she has had this before when the crystals needed to be realigned and she has seen ENT for that in the past and this feels the same. She does admit to a mild headache, states that it started after the second episode of vertigo this morning not the first 1, and she feels like it is because she was vomiting which sometimes gives her headache. She was seen by urgent care and referred to the ER prior to coming here. She states she has had a lump in the right side of her neck, it is not bothering her right now, but she was referred to somebody for that 6 months ago. [facility] Medical History Neurologic disorder of eye movements Breast cancer, left breast Home Medications ?Medication ?Instructions ?Recorded ?Last Taken ?Type metoclopramide HCl 5 mg tablet 5 mg PO Q6H PRN nausea and 08/03/21 Unknown Rx (Reglan) vomiting or vertigo #20 tabs Allergy/AdvReac Type Severity Reaction Status Date / Time adhesive tape Allergy Mild Rash Verified 12/16/21 15:21 Surgical History H/O left nephrectomy Social History Smoking Status: Never smoker ROS ROS ED Constitutional Constitutional ED: Denies chills or fever(s) Eyes Eyes: Denies change in vision or diplopia ENT ENT ED: Reports as per HPI and dizziness; Denies ear discharge, ear pain, hearing loss, rhinorrhea, sore throat or tinnitus Cardiovascular Cardiovascular: Denies chest pain or palpitations Respiratory/Chest Respiratory/Chest: Denies cough or dyspnea Gastrointestinal Gastrointestinal: Reports nausea and vomiting; Denies abdominal pain or diarrhea Genitourinary Genitourinary ED: Denies dysuria or hematuria Musculoskeletal Musculoskeletal: Denies back pain or neck pain Integumentary Denies abscess or rash Neurologic Neurologic: Reports dizziness and headache(s); Denies abnormal gait, paresthesias or weakness Psychiatric Psychiatric: Denies anxiety or suicidal thoughts EXAM Physical Exam Const Vital Signs: 04/09/24 12:44 Temperature 96.3 F L Temperature Source Temporal Pulse Rate 107 H Respiratory Rate 18 Blood Pressure 175/91 H Blood Pressure Mean 119 Pulse Ox 98 Oxygen Delivery Method Room Air Positive well nourished and well developed General Appearance ED: well developed and NAD HEENT Reports moist mucous membranes normocephalic and atraumatic Eyes PERRL and EOMs intact bilaterally Eyes Narrative: No none fatigable or rotatory/vertical nystagmus. Neck full ROM and supple Resp normal respiratory effort and clear to auscultation bilaterally Cardio regular rate, regular rhythm and no murmurs GI non-tender and non-distended Auscultation: normoactive bowel sounds Palpation: soft Back/Spine no CVA tenderness General Back: other FROM Extremity normal to inspection General Extremety ED: Negative for edema, pulses abnormal or tenderness General Extremity: Negative for edema or pulses abnormal Neuro oriented x3, CN's II-XII intact bilaterally and no sensory deficits noted Neuro Narrative: Normal speech. No dysmetria normal [id number]-um-wibs and diar-sl-jyzf bilaterally. Positive [place]-Hallpike maneuver to the right reproducing her symptoms and creating nonfatigable horizontal nystagmus that eventually resolved as the patient remained in that position. Negative skew test. Sensorium / Orientation: awake and alert Motor Exam: strength 5/5 throughout Psych mental status grossly normal Skin no rashes or lesions noted and no wounds MDM MDM MDM Narrative Medical decision making narrative: After performing [place]hisl[place]-Hallpike we continued to leave her in that position for 30-60 seconds after which the vertiginous symptoms resolved, and we continued to perform the Mele maneuver. With the subsequent position change, she had some transient nystagmus and vertigo that resolved, she did feel little better after sitting her up although she was very nauseated throughout the procedure. I offered a CT given the headache in order to rule intracranial hemorrhage, she declines and states she gets very anxious and does not feel like she needs a CT scan, stating that these feel like the same symptoms that she had before with BPPV which is what I think this is. Given appropriate discharge instructions with outpatient follow-up and we discussed reasons to return. She is comfortable with that plan. Discharge Plan Triage Chief Complaint: Dizziness ED Provider: Quirino Guillen Dx/Rx/DC Orders Clinical Impression: Benign paroxysmal positional vertigo of right ear Instructions: ED BPV Vertigo Prescriptions: No Action metoclopramide HCl [Reglan] 5 mg tablet 5 mg PO Q6H PRN (Reason: nausea and vomiting or vertigo) Qty: 20 0RF Primary Care Provider: Tianna Powers Referrals: Noel Brooks MD [Med Staff - Active Staff] - 3-5 Days if not improving Tianna Powers, [employer] [Primary Care Provider] - Activity Restrictions/Additional Instructions: if symptoms persist, consider looking up Mele Maneuver and perform on yourself at home until you are able to follow up. Print Language: Montenegrin Disposition Disposition: Home, Self Care
[2024-04-09] MEDS: Ondansetron ODT 4 MG Tablet 8 MG PO (13:18)
[2024-04-09] MEDS: Acetaminophen 500 MG Tablet 1000 MG PO (13:21)
== END 2024-04-09 13:25 | disposition home or self-care (01) ==
PROVIDERS: Emergency Provider Emergency Medicine; PCP Nurse Practitioner Family; Visit Provider Emergency Medicine
DX: H81.11 Benign paroxysmal vertigo, right ear (principal)
CPT/HCPCS: 99282

== ENCOUNTER 2024-04-10 10:33 | Emergency (ER) | payer BC, MEDICARE, SELFPAY ==
[2024-04-10 10:33] VITALS: BP 147/89; PULSE 99; RESP 16; TEMP 37.1; O2SAT 100; BMI 24.1
--- NOTE | 2024-04-10 11:30 | EDS_ITS ---
HPI History of Present Illness Chief Complaint: Dizziness Informant: patient Onset/Context/Timing Onset: Yesterday Context: Sudden Onset Timing: Continuous Quality: Numbness Location: Right ear, face, and neck Worsened by: Turning her head to the right Relieved by: Nothing Narrative Narrative: Patient presents with dizziness, nausea, and vomiting that began yesterday. Patient was seen here for this yesterday. Patient had Mele maneuvers which seem to help. Patient states that when she got home last night she turned her head and the dizziness came back. Patient states she is unable to keep anything down since yesterday. Patient describes her dizziness as a spinning sensation. Patient states it is worse whenever she turns her head to the right. Patient also admits to some numbness to her right ear and face area. Patient denies any weakness. Patient denies any difficulty swallowing. [facility] Medical History Neurologic disorder of eye movements Breast cancer, left breast Home Medications ?Medication ?Instructions ?Recorded ?Last Taken ?Type metoclopramide HCl 5 mg tablet 5 mg PO Q6H PRN nausea and 08/03/21 Unknown Rx (Reglan) vomiting or vertigo #20 tabs diazepam 2 mg tablet 2 mg PO TID PRN PRN Vertigo #10 04/10/24 Unknown Rx TABLETS Allergy/AdvReac Type Severity Reaction Status Date / Time adhesive tape Allergy Mild Rash Verified 12/16/21 15:21 Surgical History H/O left nephrectomy Social History Smoking Status: Never smoker ROS ROS ED Constitutional Constitutional ED: Denies chills or fever(s) Eyes Eyes: Denies blurry vision or change in vision ENT ENT ED: Denies rhinorrhea or sore throat Cardiovascular Cardiovascular: Denies chest pain or palpitations Respiratory/Chest Respiratory/Chest: Reports cough; Denies dyspnea Gastrointestinal Gastrointestinal: Reports nausea and vomiting Genitourinary Genitourinary ED: Denies dysuria or hematuria Musculoskeletal Musculoskeletal: Reports neck pain; Denies back pain Integumentary Denies abscess or rash Neurologic Neurologic: Reports headache(s); Denies weakness Allergic/Immunologic Allergic/Immunologic ED: Denies mouth swelling or urticaria EXAM Physical Exam Const Vital Signs: 04/10/24 10:33 04/10/24 12:36 Temperature 98.7 F Temperature Source Oral Pulse Rate 99 86 Respiratory Rate 16 15 Blood Pressure 147/89 H 127/84 H Blood Pressure Mean 108 98 Pulse Ox 100 97 Oxygen Delivery Method Room Air Room Air Positive well nourished and well developed General Appearance ED: well developed and NAD HEENT Reports moist mucous membranes Eyes PERRL and EOMs intact bilaterally Eyes Narrative: There is no nystagmus noted with lateral gaze. Neck supple and no JVD Resp normal respiratory effort and clear to auscultation bilaterally GI non-tender and non-distended Palpation: soft Back/Spine no CVA tenderness Extremity normal to inspection Psych mental status grossly normal MDM MDM MDM Narrative Medical decision making narrative: Differential diagnosis includes stroke, intracranial bleeding, vertigo, and dehydration. CT scan of the brain will be obtained to assess for stroke and int racranial bleeding. Radiography Diagnostic Testing: Clinical Impression(s) from Imaging Studies Brain CT 04/10/24 11:34 IMPRESSION: Age consistent senescent changes, no acute findings Electronically Signed: Miles Sanchez MD at 12:58 EST Reading Location ID and State: [address] [place] [address] , Service support , CT scan of the brain was obtained. There is no acute intracranial abnormality. There are some chronic changes noted. This was interpreted by the radiologist and was also independently reviewed by myself. Treatment and Re-Evaluation :: Patient was given IV fluids, Zofran, and Valium. Patient is feeling better on reevaluation. Patient was advised of her findings. Patient was given a prescription for a short course of Valium. Patient was instructed to drink plenty of fluids. Patient was instructed to follow-up with her primary care physician in 5 to 7 days. Patient was instructed to return if worse in any way. Patient understood and was agreeable with the plan. All questions were answered. Discharge Plan Triage Chief Complaint: Dizziness ED Provider: Paco Villarreal Dx/Rx/DC Orders Clinical Impression: Benign paroxysmal positional vertigo of right ear Instructions: ED BPV Vertigo Prescriptions: New diazepam [diazepam] 2 mg tablet 2 mg PO TID PRN PRN (Reason: Vertigo) Qty: 10 0RF No Action metoclopramide HCl [Reglan] 5 mg tablet 5 mg PO Q6H PRN (Reason: nausea and vomiting or vertigo) Qty: 20 0RF Primary Care Provider: Tianna Powers Referrals: Tianna Powers, [employer]-[facility] [Primary Care Provider] - 5-7 Days Print Language: Slovenian Disposition Disposition: Home, Self Care
--- NOTE | 2024-04-10 11:34 | CT_ITS ---
STUDY: CT BRAIN WITHOUT CONTRAST REASON FOR EXAM: Female, 69 years old. Vertigo RADIATION DOSAGE (If Supplied By Facility): CTDIvol = ( 44.99 ) mGy, DLP = ( 782.05 ) mGycm TECHNIQUE: Transaxial CT imaging of the brain was performed without administration of intravenous contrast material. Individualized dose optimization techniques were used for this CT. COMPARISON: 08/03/2021 FINDINGS: Normal soft tissue structures. Normal calvarium. Normal size ventricles and extra-axial spaces for the patient''s age. Normal white matter tracts of the cerebral hemispheres. Normal basal ganglia and thalami. Normal brainstem. Normal cerebellum. There is no intracranial hemorrhage. There are no findings of an acute ischemic infarction. Normal visualized paranasal sinuses. CT/Brain/Head without Contrast IMPRESSION: Age consistent senescent changes, no acute findings Electronically Signed: Miles Sanchez MD at 12:58 EST ,
[2024-04-10] MEDS: diazePAM 5 MG Tablet 2.5 MG PO (12:19)
[2024-04-10] MEDS: 0.9% Normal Saline (1000mL) 1,000 ML 1000 ML IV (12:20)
[2024-04-10] MEDS: Ondansetron 4 MG/2 ML Vial IV (12:20)
[2024-04-10 12:36] VITALS: BP 127/84; PULSE 86; RESP 15; O2SAT 97
[2024-04-10 14:02] VITALS: BP 131/78; PULSE 79; RESP 16; TEMP 36.7; O2SAT 100
== END 2024-04-10 14:03 | disposition home or self-care (01) ==
PROVIDERS: Emergency Provider Emergency Medicine; PCP Nurse Practitioner Family; Visit Provider Emergency Medicine
DX: H81.11 Benign paroxysmal vertigo, right ear (principal)
CPT/HCPCS: 70450; 96361; 96374; 96376; 99283; J7030; A4216; J2405

== ENCOUNTER → 2024-06-16 | Outpatient (CLI) | payer BC, MEDICARE, SELFPAY ==
--- NOTE | 2024-06-16 13:37 | CDU_ITS ---
Reason For Study: Dizziness Rt. Velocities/BP Lt. Velocities/BP Prox CCA 67.4/16.3 cm/sec. Prox CCA 98.1/24.5 cm/sec. Mid CCA 53.2/13.5 cm/sec. Mid CCA 110.2/26.7 cm/sec. Dist CCA 44.7/13.5 cm/sec. Dist CCA 70.7/20.1 cm/sec. Prox ICA 50.4/12.6 cm/sec. Prox ICA 55.3/14.6 cm/sec. Mid ICA 75.9/22 cm/sec. Mid ICA 86.1/30 cm/sec. Dist ICA 87.2/25.8 cm/sec. Dist ICA 77.3/27.8 cm/sec. Rt. ICA/CCA = 1.64. Lt. ICA/CCA = 0.78. Prox ECA 74/10.7 cm/sec. Prox ECA 77.3/12.4 cm/sec. Rt. Vert. 49.4/11.6 cm/sec. Lt. Vert. 56.1/16 cm/sec. Right Extracranial There is intimal thickening but no significant atherosclerotic plaque noted in the right common carotid artery. There is intimal thickening but no significant atherosclerotic plaque noted in the right internal carotid artery. There is intimal thickening but no significant atherosclerotic plaque noted in the right external carotid artery. Antegrade flow is noted in the right vertebral artery. Left Extracranial There is intimal thickening but no significant atherosclerotic plaque noted in the left common carotid artery. There is heterogeneous, irregular atherosclerotic plaque noted in the left internal carotid artery. There is intimal thickening but no significant atherosclerotic plaque noted in the left external carotid artery. Antegrade flow is noted in the left vertebral artery. Procedure Carotid Duplex [id number]. This is a Carotid Duplex examination using B-mode, color flow and specral Doppler. Exam performed in department. VL/Carotid Duplex Ultrasound Interpretation Summary No significant atherosclerotic plaque or stenosis noted in the right internal c arotid artery. Mild (<50%) stenosis left extracranial internal carotid. Flow within the vertebral a rteries is antegrade bilaterally. Ordering Physician: Tianna Powers Referring Physician: Tianna Powers Performed By: Evelyne Hernandez RVT
== END | disposition home or self-care (01) ==
LOC: CVS 13:36
PROVIDERS: PCP Nurse Practitioner Family; Referring Provider Nurse Practitioner Family; Visit Provider Nurse Practitioner Family
DX: R42 Dizziness and giddiness (principal)
CPT/HCPCS: 93880

== ENCOUNTER → 2024-08-04 | Outpatient (CLI) | payer BC, MEDICARE, SELFPAY ==
--- NOTE | 2024-08-04 10:23 | BD_ITS ---
PROCEDURE: DEXA BONE DENSITY STUDY 08/04/2024 REASON FOR EXAM: F, age 69 y/o . Postmenopausal. TECHNIQUE: DXA scan of the lumbar spine and left hip, using make and model. [facility] COMPARISON: Comparison is made with prior study dated April 17, 2022. FINDINGS: Lumbar Spine (L1-L4): g/cm2 (0.782)/T-score (-2.1)/Z-score (-0.1) findings are suggestive of osteopenic with a high fracture risk. Left Femur Total: g/cm2 (0.707)/T-score (-1.9)/Z-score (-0.4) Left Femoral Neck: g/cm2 (0.692)/T-score (-1.4)/Z-score (0.4) Right Femur Total: g/cm2 (0.787)/T-score (-1.3)/Z-score (0.3) Right Femoral Neck: g/cm2 (0.763)/T-score (-0.8)/Z-score (1.0) The T-Scores on the most recent prior examination were: Lumbar Spine (L1-L4): There has been worsening of bone density since the previous examination. Left Femur Total: Worsening by 7.6%. Right Femur Total: Worsening by 5.2%. BD/Dexa Bone Density Study IMPRESSION: The patient is considered osteopenia as outlined below according to World Guru Organization (WHO) criteria with a high fracture risk. There has been worsening of bone density since the previous examination. Recommend follow-up as clinically warranted. Reading Location: [place] [id number]
--- NOTE | 2024-08-04 10:30 | BI_ITS ---
EXAM: SCRN MAMM (CAD)W/BRAYDEN BILAT DATE: 08/04/2024 CLINICAL HISTORY: F, Age 69 y/o , POST MENOPAUSAL. Personal history of breast cancer. History of prior left lumpectomy with radiation and chemotherapy. Resection of the left nipple. BREAST CANCER RISK ASSESSMENT: Not assessed. TECHNIQUE: Bilateral screening digital breast tomosynthesis with 2D and 3D images. Computer aided detection. COMPARISON: Prior exam(s) dating back to August 03, 2023.. FINDINGS: Bilateral Breast Mammographic Findings: No significant masses, calcifications or other abnormalities are identified. TISSUE DENSITY: The breast tissue is heterogenously dense, which may obscure small masses. Once again, the patient is status post lumpectomy in the deep upper medial aspect of the left breast with resultant postoperative scarring and breast deformity. Skin thickening. Surgical clips are also seen in the left axilla. BI/SCRN MAMM (CAD)W/BRAYDEN BILAT IMPRESSION: Right Breast: BIRADS 2 BENIGN FINDING. Left Breast: BIRADS 2 BENIGN FINDING. OVERALL FINAL ASSESSMENT: BIRADS 2 BENIGN FINDING RECOMMENDATION: ROUTINE ANNUAL FOLLOW-UP Bilateral in 1 Year Normal interval followup mammograms are recommended in 12 months. A letter with findings and recommendations will be mailed to the patient. Reading Location: [place] [address]
== END | disposition home or self-care (01) ==
LOC: OPBD 10:22
PROVIDERS: PCP Nurse Practitioner Family; Referring Provider Nurse Practitioner Family; Visit Provider Nurse Practitioner Family
DX: Z12.31 Encounter for screening mammogram for malignant neoplasm of breast (principal); Z78.0 Asymptomatic menopausal state
CPT/HCPCS: 77063; 77067; 77080

== ENCOUNTER → 2025-01-17 | Outpatient (CLI) | payer BC, MEDICARE, SELFPAY ==
[2025-01-17 10:33] LABS: Hematocrit 42.6 % (37-47); Hemoglobin 14.0 g/dL (12.0-15.0); Immature Granulocytes Count 0.020 X10^3/uL (0.0-0.0); Mean Corp Hgb Conc 32.9 g/dL (32-36); Mean Corpuscular Volume 85.9 fL (81-99); Mean Platelet Vol. 10.2 fl (6.2-12.0); NRBC Flagged by Analyzer 0 % (0-5); Platelet Count 269 K/mm3 (150-450); RBC Distribution Width CV 13.2 % (11.6-14.6); RBC Distribution Width SD 40.9 fl (35.1-43.9); Red Blood Count 4.96 M/mm3 (4.2-5.4); White Blood Count 5.7 K/mm3 (4.4-11.0)
[2025-01-17 10:59] LABS: Color, Urine Yellow (Yellow); Glucose, Dipstick Normal (Normal); Ketone-Dipstick Negative (Negative); Leukocyte Esterase-Dipstick Negative /ul (Negative); Nitrite-Dipstick Negative (Negative); Occult Blood-Urine Negative /ul (Negative); Protein-Dipstick 15 mg/dl (Negative); Specific Gravity, Urine 1.010 (1.002-1.030); Urine Bilirubin Dipstick Negative (Negative)
[2025-01-17 11:40] LABS: Creatinine, Urine (random) 80.50 mg/dL (28.00-217.00); Microalbumin,Random Urine < 12.0 mg/L (<20 mg/L)
[2025-01-17 11:50] LABS: AST(SGOT) 19 U/L (<=31); Alanine Aminotransfer ALT/SGPT 15 U/L (<=34); Albumin, Serum 4.3 g/dL (3.4-4.8); Alkaline Phosphatase 74 U/L (35-104); Anion Gap 10 (5-15); BUN 12 mg/dL (4-19); BUN/Creat Ratio 15.4 RATIO (10-20); Calcium,Total 10.2 mg/dL (7.6-11.0); Carbon Dioxide 26.3 mmol/L (21.0-32.0); Chloride 105 mmol/L (98-108); Cholesterol 187 mg/dL (<=200); Globulin 2.9 g/dL (2.2-4.2); Glucose 101 mg/dL (70-99); Low Density Lipoprotein Calc. 97 mg/dL; Potassium 4.4 mmol/L (3.3-5.1); T4 Total, Thyroxin 7.3 ug/dL (4.8-13.9); Triglycerides 60 mg/dL; Very Low Density Lipoprotein 12 mg/dL (5-40); Vitamin B12 661 pg/mL (180-914); cholesterol:hdl ratio screen 2.39
[2025-01-17 14:03] LABS: FOLATES,SERUM (FOLIC ACID) 25.90 ng/mL (4.60-34.80)
== END | disposition home or self-care (01) ==
LOC: MTLAB 09:10
PROVIDERS: PCP Nurse Practitioner Family; Referring Provider Nurse Practitioner Family; Visit Provider Nurse Practitioner Family
DX: E78.5 Hyperlipidemia, unspecified (principal); I10 Essential (primary) hypertension; F41.9 Anxiety disorder, unspecified; R73.01 Impaired fasting glucose; G62.9 Polyneuropathy, unspecified
CPT/HCPCS: 36415; 80053; 80061; 81002; 82043; 82570; 82607; 82746; 84436; 84443; 85025